=== PATIENT | female | born 1950 | race Two or more races ===

== ENCOUNTER 2024-02-02 09:33 | Outpatient (REF) | payer OTHER, SELFPAY ==
[2024-02-02 11:06] LABS: Alanine Aminotransferase 28 U/L (0-31); Albumin Level 4.5 g/dL (3.5-5.0); Alkaline Phosphatase 68 U/L (39-117); Anion Gap 9 (12-20); Aspartate Amino Transferase 32 U/L (5-31); Bilirubin Direct 0.2 mg/dL (0.0-0.5); Bilirubin Total 0.8 mg/dL (0.0-1.0); Blood Urea Nitrogen 17 mg/dL (9-16); Calcium 10.7 mg/dL (8.4-10.2); Carbon Dioxide 34 mmol/L (22-29); Chloride 99 mmol/L (96-108); Estimated Glomerular Filt Rate > 60; Glucose Random 99 mg/dL (60-115); Potassium 3.3 mmol/L (3.3-5.1); Sodium 139 mmol/L (135-145); Total Protein 7.9 g/dL (6.5-8.0)
[2024-02-02 11:19] LABS: T4 Thyroxine 9.3 ug/dL (4.5-12.0); Thyroid Stimulating Hormone 1.82 uIU/mL (0.32-4.0)
[2024-02-02 11:28] LABS: Folate 10.4 ng/mL (> or = 4.0); Vitamin B12 752 pg/mL (200-900)
[2024-02-11 06:17] LABS: Vitamin B1 13 nmol/L (8-30)
== END 2024-02-02 09:34 | disposition home or self-care (01) ==
LOC: HO.LAB 09:33
PROVIDERS: PCP Internal Medicine; Visit Provider Psychiatry & Neurology Neurology
DX: G31.84 Mild cognitive impairment of uncertain or unknown etiology (principal)
CPT/HCPCS: 36415; 80048; 80076; 82607; 82746; 84425; 84436; 84443

== ENCOUNTER 2024-02-24 15:38 | Outpatient (REF) | payer OTHER, SELFPAY ==
--- NOTE | ~2024-02-24 | MR_ITS ---
EXAMINATION: MR BRAIN WITHOUT CONTRAST CLINICAL INFORMATION: Memory loss COMPARISON: None TECHNIQUE: Multiplanar multisequence MR imaging of the brain was obtained without intravenous contrast. FINDINGS: There is no acute infarct on diffusion-weighted imaging. Focus of susceptibility artifact in the superior left frontal lobe which may reflect or parenchymal mineralization or sequela of microhemorrhage. No extra-axial collection or mass effect/herniation. Scattered periventricular and deep white matter T2 FLAIR hyperintensities consistent with mild underlying microangiopathy. No hydrocephalus. The ventricles are normal in morphology and size. The major flow voids at the skull base are preserved. The midline structures are normal. The cerebellar tonsils are normally positioned. The craniocervical junction is normal. Marrow signal is within normal limits. The visualized soft tissues are without significant abnormality. Chronic right lamina papyracea fracture deformity. Ethmoid and maxillary sinus mucosal thickening with layering fluid in the maxillary antra. MR/MR head/brain wo con IMPRESSION: 1. Mild chronic white matter microangiopathy. 2. Focus of susceptibility artifact in the superior left frontal lobe which may reflect parenchymal mineralization or sequela of microhemorrhage. 3. Ethmoid and maxillary sinus mucosal thickening with layering fluid in the maxillary antra. Correlate for acute sinusitis.
== END 2024-02-24 15:39 | disposition home or self-care (01) ==
LOC: HO.MRI 15:38
PROVIDERS: PCP Internal Medicine; Visit Provider Psychiatry & Neurology Neurology
DX: I67.9 Cerebrovascular disease, unspecified (principal)
CPT/HCPCS: 70551